=== PATIENT | male | born 1965 | race Caucasian/White ===

== ENCOUNTER 2025-05-19 15:01 | Outpatient (CLI) | payer OTHER, SELFPAY ==
--- NOTE | 2025-05-19 15:07 | MR_ITS ---
FINAL REPORT TECHNIQUE: Multiplanar and multisequence imaging of the left knee was obtained without contrast. CLINICAL HISTORY: SPRAIN OF LT KNEE felt a pop, pain COMPARISON: None FINDINGS: Bones: There is no acute fracture or marrow edema. The joint space is preserved. There are no full thickness cartilage defects. Menisci: Radial tear of the posterior horn medial meniscus at the root attachment. Remainder of the medial meniscus is intact. Lateral meniscus intact. Ligaments: Sprain or partial tear of the ACL. PCL intact Tendons/Muscles: The quadriceps and patellar tendons are intact. The biceps femoris tendon and iliotibial tract are intact. The popliteus tendon is unremarkable. Other: Moderate joint effusion. Prepatellar edema. IMPRESSION: Radial tear posterior horn medial meniscus at the meniscal tibial root attachment. Sprain or partial ACL tear. Reviewed, Interpreted and Dictated by Kenya De La Rosa MD Transcribed by Kailey Demarco Authenticated and [facility]
== END 2025-05-19 23:59 | disposition home or self-care (01) ==
LOC: RAD 15:04
DX: S83.242A Other tear of medial meniscus, current injury, left knee, initial encounter (principal); S83.512A Sprain of anterior cruciate ligament of left knee, initial encounter
CPT/HCPCS: 73721